=== PATIENT | female | born 1990 | race African-American/Black ===

== ENCOUNTER → 2024-04-12 10:42 | Outpatient (REF) | payer OTHER, SELFPAY ==
[2024-04-13 11:34] LABS: Mumps Virus IgG Positive
[2024-04-14 15:57] LABS: Quantiferon Mitogen minus NIL 9.99 IU/mL; Quantiferon NIL 0.01 IU/mL; Quantiferon TB Gold Plus Negative (Negative)
== END ==
LOC: OHS 10:42
PROVIDERS: ATTENDING PHYSICIAN Nurse Practitioner Family
DX: Z23 Encounter for immunization (principal)
CPT/HCPCS: 36415; 86480; 86735